=== PATIENT | male | born 1945 | race Caucasian/White ===

== ENCOUNTER 2018-09-13 07:50 | Day surgery (SDC) | payer MEDICARE, OTHER ==
[~2018-09-13 07:50] MED LIST: Lactated Ringers 1,000 ML IV SCH; Lidocaine 1%/Sod Bicarbonate in NS 8.4% 1 ML Syringe IDERM PRN; Propofol 200 MG/20 ML SDV ONE; Sodium Chloride 0.9% 10 ML Syringe FLUSH PRN; fentaNYL 100 MCG/2 ML SDV ONE
--- NOTE | 2018-09-13 08:44 | PCM.PREANE ---
Preanesthetic Assessment - Procedure Proposed Procedure: egd colonoscopy - Anesthesia/Transfusion/Family Hx Anesthesia History: Prior Anesthesia Without Reaction Family History of Anesthesia Reaction: No Transfusion History: Unknown - Review of Systems General: Weakness (since apr), Chills Pulmonary: Shortness of Breath Cardiovascular: Lightheadedness Gastrointestinal: Abdominal Pain Neurological: Dizziness Other: Reports: None, Depression - Physical Assessment NPO Status Date: 09/12/18 NPO Status Time: 22:00 O2 Sat by Pulse Oximetry: 99 Respiratory Rate: 16 Vital Signs: Last Vital Signs Temp 98.2 F 09/13/18 08:10 Pulse 70 09/13/18 08:10 Resp 16 09/13/18 08:10 BP 119/66 09/13/18 08:10 Pulse Ox 99 09/13/18 08:10 Height: 5 ft 8 in Weight: 60.781 kg ASA Class: 3 Mental Status: Other (sometimes confused) Airway Class: Mallampati = 1 Dentition: Reports: Broken Tooth/Teeth, Missing Tooth/Teeth, Caries Thyro-Mental Finger Breadths: 3 Mouth Opening Finger Breadths: 3 ROM/Head Extension: Limited/Partial Lungs: Clear to Auscultation, Normal Respiratory Effort, Decreased Breath Sounds Cardiovascular: Regular Rate, Regular Rhythm - Allergies Allergies/Adverse Reactions: Allergies Allergy/AdvReac Type Severity Reaction Status Date / Time contrast Dye Allergy Dizziness Uncoded 09/12/18 13:02 powder (from gloves) Allergy Rash Uncoded 09/12/18 13:02 - Blood Blood Available: No - Acknowledgements Anesthesia Type Planned: MAC Pt an Appropriate Candidate for the Planned Anesthesia: Yes Alternatives and Risks of Anesthesia Discussed w Pt/Guardian: Yes Pt/Guardian Understands and Agrees with Anesthesia Plan: Yes PreAnesthesia Questionnaire HEENT History: Reports: Other (See Below) Other HEENT History: nasal polyp, hard of hearing, nasal polyp surgery, has glasses, hearing aids Respiratory History: Reports: COPD, Other (See Below) (uses o2 at night) Other Respiratory History: hypoxia Gastrointestinal History: Reports: GERD (depends on what he eats) Genitourinary History: Reports: Other (See Below) Other Genitourinary History: renal insufficiency, acute renal failure, chronic kidney disease, partial penectomy [employer] History: Reports: None Musculoskeletal History: Reports: Arthritis, Other (See Below) (waiting for left hip replacement) Neurological History: Reports: None Psychiatric History: Reports: None Endocrine/Metabolic History: Reports: None Hematologic History: Reports: Anemia Immunologic History: Reports: None Oncologic (Cancer) History: Reports: Squamous Cell Carcinoma, Other (See Below) (penile) Other Dermatologic History: lymphadenectomy - Past Surgical History Head Surgeries/Procedures: Reports: None Cardiovascular Surgical History: Reports: None Respiratory Surgical History: Reports: None GI Surgical History: Reports: Appendectomy Female Surgical History: Reports: None Male Surgical History: Reports: Penile Surgery, Other (See Below) (lymph nodes removed from left leg) Endocrine Surgical History: Reports: None Neurological Surgical History: Reports: None Musculoskeletal Surgical History: Reports: None Oncologic Surgical History: Reports: None Dermatological Surgical History: Reports: None - SUBSTANCE USE Smoking Status *Q: Former Smoker (quit many years ago) Tobacco Use Within Last Twelve Months: No Second Hand Smoke Exposure: No Days Per Week of Alcohol Use: 1 (social) Recreational Drug Use History: No - HOME MEDS Home Medications: Home Meds Albuterol Sulfate [Albuterol Sulfate HFA] 8.5 gm IH Q4H PRN 07/18/14 [History] Ascorbic Acid [Vitamin C] 1,000 mg PO DAILY 09/12/18 [History] Cholecalciferol (Vitamin D3) [Vitamin D3] 2,000 unit PO DAILY 09/12/18 [History] Ferrous Sulfate [Iron] 325 mg PO DAILY 09/12/18 [History] Finasteride 5 mg PO DAILY 09/12/18 [History] Iron Ag,Ps/C/Fa6/B12/Zn/SA/Sto [Niferex Tablet] 1 tab PO DAILY 09/12/18 [History ] traMADol [Ultram] 50 mg PO Q8H PRN 09/12/18 [History] - CURRENT (IN HOUSE) MEDS Current Meds: Current Medications Lactated Ringer's (Ringers, Lactated) 1,000 mls @ 125 mls/hr IV ASDIRECTED KARLA Stop: 09/13/18 23:00 Lidocaine/Sodium Bicarbonate (Buffered Lidocaine 1% In Ns 8.4%) 0.25 ml IDERM ONETIME PRN PRN Reason: Prior to IV Start Stop: 09/13/18 18:00 Sodium Chloride (Saline Flush) 10 ml FLUSH ASDIRECTED PRN PRN Reason: Keep Vein Open Stop: 09/13/18 18:00 Discontinued Medications Fentanyl (Sublimaze) Confirm Administered Dose 100 mcg .ROUTE .STK-MED ONE Stop: 09/13/18 07:16 Propofol (Diprivan 20 Ml) Confirm Administered Dose 200 mg .ROUTE .STK-MED ONE Stop: 09/13/18 07:16
[2018-09-13] MEDS ORDERED: Propofol 200 MG/20 ML SDV ONE (09:48)
[2018-09-13] MEDS ORDERED: Lactated Ringers 1,000 ML ONE (10:09)
--- NOTE | 2018-09-13 10:15 | PCM.OPNOTE ---
- General Post-Op/Procedure Note Date of Surgery/Procedure: 09/13/18 Operative Procedure(s): colonoscopy to cecum Pre Op Diagnosis: anemia Post-Op Diagnosis: Same Anesthesia Technique: MAC Primary Surgeon: Alfred Motta EBL in mLs: 0 Complications: None Condition: Good
--- NOTE | 2018-09-13 10:16 | PCM48HPAN ---
Post Anesthesia Note - EVALUATION WITHIN 48HRS OF ANESTHETIC Vital Signs in Normal Range: Yes Patient Participated in Evaluation: Yes Respiratory Function Stable: Yes Airway Patent: Yes Cardiovascular Function Stable: Yes Hydration Status Stable: Yes Pain Control Satisfactory: Yes Nausea and Vomiting Control Satisfactory: Yes Mental Status Recovered: Yes Pulse Rate: 60 SaO2: 97 Resp Rate: 18 Temperature: 36.7 C Blood Pressure: 141/65
[2018-09-13] MEDS ORDERED: Metoclopramide 10 MG/2 ML SDV IVPUSH ONE (10:45)
[2018-09-13 12:48] VITALS: BP 108/61
--- NOTE | 2018-09-14 08:01 | OR ---
DATE OF OPERATION: 09/13/2018 SURGEON: Alfred Motta MD PREOPERATIVE DIAGNOSIS: Dyspepsia, heartburn, weight loss, and anemia. POSTOPERATIVE DIAGNOSIS: Dyspepsia, heartburn, weight loss, and anemia. OPERATION PERFORMED: Esophagogastroduodenoscopy with biopsy. FINDINGS: Some deformity of the pyloric channel, but without any ulcerations. The gastric mucosa was flat and suggested chronic gastritis. 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 The second portion of the duodenum, duodenal bulb, and balance of the esophagus did not show any acute disease. ANESTHESIA: Done under IV sedation. DESCRIPTION OF PROCEDURE: The patient was taken to the endoscopy room, placed in the supine position, connected to monitoring equipment, given IV sedation. He was placed in left lateral position. Bite block was inserted. A video Olympus gastroscope was placed in the posterior oropharynx under direct vision, threaded past the cricopharyngeus, down the esophagus, into the stomach. The stomach was insufflated, and the scope passed through the pylorus and second portion of duodenum and slowly withdrawn showing only a little deformity of the duodenal bulb. The stomach was large, but no acute process other than chronic gastritis was seen. Biopsy of the antrum was performed. J-maneuver demonstrated fundus, cardia, and body of the stomach and incompetent hiatus. Scope withdrawn to the GE junction located at 40 cm, showed some exuberant tissue just below the GE junction. This was biopsied. There was some telangectasia around the GE junction suggestive of chronic esophagitis. The rest of the esophagus was viewed. Scope withdrawn and unremarkable. The patient tolerated the procedure and specimen sent to pathology in a labeled container. IV sedation will be continued for colonoscopy. ESTIMATED BLOOD LOSS: MMODAL /[id number]
--- NOTE | 2018-09-14 08:01 | OR ---
DATE OF OPERATION: 09/13/2018 SURGEON: Alfred Motta MD PREOPERATIVE DIAGNOSIS: Anemia. POSTOPERATIVE DIAGNOSIS: Anemia. OPERATION PERFORMED: Colonoscopy to cecum. FINDINGS: Normal study outside of internal hemorrhoids. Prep was [place] grade B. There were no angiodysplasias, neoplasias, large tumor masses, or ulcerations noted. ANESTHESIA: Procedure done under IV sedation. DESCRIPTION OF PROCEDURE: The patient having been taken to the endoscopy room, placed in a supine position, connected to monitoring equipment, and given IV sedation for upper GI endoscopy. The IV sedation was continued for colonoscopy and placed in the left lateral position. Perianal area was inspected and was normal. Rectal exam showed good sphincter tone. A video Olympus colonoscope was then introduced into the rectum and threaded up without problem to the cecum, where the appendicular orifice and ileocecal valve were noted. Prep was good. [place] Cleansing Score grade B. Pockets of fluid were noted and aspirated. The scope was slowly withdrawn showing the cecum, ascending colon, transverse colon, descending colon, sigmoid colon, and rectum. Retroflexed view was done. The above noted was found. The patient tolerated the procedure and sent to recovery room in a stable condition. ESTIMATED BLOOD LOSS: MMODAL /[id number]
== END 2018-09-13 12:30 | disposition home or self-care (01) ==
LOC: JD.SDS 07:50
PROVIDERS: ATTEND Surgery
DX: D64.9 Anemia, unspecified (principal); K64.8 Other hemorrhoids; K29.50 Unspecified chronic gastritis without bleeding; K22.0 Achalasia of cardia; R63.4 Abnormal weight loss; I12.9 Hypertensive chronic kidney disease with stage 1 through stage 4 chronic kidney disease, or unspecified chronic kidney disease; N18.3 Chronic kidney disease, stage 3 (moderate); J44.9 Chronic obstructive pulmonary disease, unspecified; N17.9 Acute kidney failure, unspecified; Z87.891 Personal history of nicotine dependence; Z79.899 Other long term (current) drug therapy; Z88.8 Allergy status to other drugs, medicaments and biological substances; Z91.041 Radiographic dye allergy status
CPT/HCPCS: 43239; 45380; J2704; J2765; J3010; J7120; 00813

== ENCOUNTER 2021-10-22 09:17 | Emergency (ER) | payer MEDICARE, OTHER ==
[2021-10-22 10:04] VITALS: BP 115/64; PULSE 67
[2021-10-22] MEDS ORDERED: Ondansetron 4 MG/2 ML SDV IVPUSH ONE (12:57)
[2021-10-22] MEDS ORDERED: HYDROmorphone 0.5 MG/0.5 ML Syringe IVPUSH ONE (12:58)
[2021-10-22] MEDS ORDERED: Dextrose 5%-0.9% NaCl 1,000 ML IV SCH (13:00)
[2021-10-22 13:10] LABS: CORONAVIRUS COVID-19 NAA NEGATIVE (NEGATIVE)
== END 2021-10-22 14:14 ==
LOC: JD.ED 09:17
DX: S32.472A Displaced fracture of medial wall of left acetabulum, initial encounter for closed fracture (principal); S40.012A Contusion of left shoulder, initial encounter; G30.0 Alzheimer's disease with early onset; F02.80 Dementia in other diseases classified elsewhere, unspecified severity, without behavioral disturbance, psychotic disturbance, mood disturbance, and anxiety; J44.9 Chronic obstructive pulmonary disease, unspecified; I12.9 Hypertensive chronic kidney disease with stage 1 through stage 4 chronic kidney disease, or unspecified chronic kidney disease; N18.9 Chronic kidney disease, unspecified; Z20.822 Contact with and (suspected) exposure to COVID-19; Z88.8 Allergy status to other drugs, medicaments and biological substances; Z91.041 Radiographic dye allergy status; W18.30XA Fall on same level, unspecified, initial encounter
CPT/HCPCS: 0240U; 36415; 71045; 72170; 73030; 73552; 80053; 81001; 85025; 85610; 85652; 85730; 86140; 93005; 96374; 96375; 99284; J1170; J2405; J7042

== ENCOUNTER 2022-11-30 17:00 | Emergency (ER) | payer MEDICARE, OTHER ==
[2022-11-30] MEDS ORDERED: Sodium Chloride 0.9% 10 ML Syringe FLUSH PRN (17:55)
[2022-11-30] MEDS ORDERED: Albuterol 0.083% 2.5 MG/3 ML Neb Soln NEB ONE (18:11)
[2022-11-30] MEDS ORDERED: Acetaminophen 325 MG Tab PO ONE (18:27)
[2022-11-30 18:55] LABS: BASOPHILS ABSOLUTE AUTO 0.01 K/mm3 (0.01-0.08); BASOPHILS PERCENT AUTO 0.1 % (0.1-1.2); EOSINOPHILS ABSOLUTE AUTO 0.04 K/mm3 (0.04-0.54); EOSINOPHILS PERCENT AUTO 0.5 (0.8-7.0); HEMATOCRIT 41.4 % (40.1-51.0); HEMOGLOBIN 14.1 gm/dl (13.7-17.5); IMMATURE GRAN ABSOLUTE AUTO 0.03 K/mm3 (0.00-0.10); IMMATURE GRAN PERCENT AUTO 0.4 % (<=1.0); LYMPHOCYTES ABSOLUTE AUTO 0.58 K/mm3 (1.32-3.57); LYMPHOCYTES PERCENT AUTO 7.2 % (21.8-53.1); MEAN CORPUSCULAR HEMOGLOBIN 31.3 pg (25.7-32.2); MEAN CORPUSCULAR HGB CONC 34.1 g/dl (32.2-35.5); MEAN CORPUSCULAR VOLUME 91.8 fl (79.0-92.2); MEAN PLATELET VOLUME 9.9 fl (9.4-12.3); MONOCYTES ABSOLUTE AUTO 0.64 K/mm3 (0.30-0.82); MONOCYTES PERCENT AUTO 7.9 % (5.3-12.2); NEUTROPHILS PERCENT AUTO 83.9 % (34.0-67.9); PLATELET COUNT,PLT 173 K/mm3 (163-337); RED BLOOD CELL COUNT 4.51 M/mm3 (4.63-6.08)
[2022-11-30 19:11] LABS: LACTIC ACID 1.4 mmol/L (0.4-2.0)
[2022-11-30 19:17] LABS: A/G RATIO 0.7 (1-2); ANION GAP 16.6 (5-15); BILIRUBIN TOTAL 0.6 mg/dL (0.2-1.0); BUN/CREATININE RATIO 21.3 (14-18); CALCIUM 8.6 mg/dL (8.5-10.1); CREATININE 2.4 mg/dL (0.7-1.3); EST CRCL DRUG DOSING (CG) 25.77 mL/min; MAGNESIUM 1.5 mg/dL (1.8-2.4); POTASSIUM,K 3.6 mEq/L (3.5-5.1); PROTEIN TOTAL,TP 7.5 g/dl (6.4-8.2)
[2022-11-30 20:04] LABS: APPEARANCE,URINE CLOUDY (Clear); BILIRUBIN,URINE NEGATIVE (Negative); COLOR,URINE DARK YELLOW (Yellow); GLUCOSE,URINE NEGATIVE (Negative); KETONES,URINE TRACE (Negative); LEUKOCYTE ESTERASE,URINE 3+ (Negative); NITRITE,URINE NEGATIVE (Negative); OCCULT BLOOD,URINE 2+ (Negative); PH,URINE 6.5 (5.0-8.0); PROTEIN,URINE 3+ (Negative); UROBILINOGEN,URINE 0.2 (0.2-1.0)
[2022-11-30 20:13] LABS: AMORPHOUS SEDIMENT,URINE MODERATE /hpf (NOT SEEN); BACTERIA,URINE MANY /hpf (FEW); HYALINE CASTS,URINE 0-5 /lpf (0-5); MUCUS,URINE FEW /hpf (FEW); RBC,URINE 20-30 /hpf (0-5); WBC,URINE TOO NUMEROUS TO CNT /hpf (0-5)
[2022-11-30] MEDS ORDERED: cefTRIAXone 2 GM in Sodium Chloride 0.9% 100 ML IV ONE (20:31)
[2022-11-30 23:07] VITALS: BP 130/70; PULSE 92
[2022-12-02 21:06] LABS: SLIDE REVIEW ABNORMAL SMEAR
== END 2022-11-30 22:22 | disposition home or self-care (01) ==
LOC: JD.ED 17:00
DX: N30.01 Acute cystitis with hematuria (principal); L24.9 Irritant contact dermatitis, unspecified cause; R79.1 Abnormal coagulation profile; J44.9 Chronic obstructive pulmonary disease, unspecified; I12.9 Hypertensive chronic kidney disease with stage 1 through stage 4 chronic kidney disease, or unspecified chronic kidney disease; N18.9 Chronic kidney disease, unspecified; M19.90 Unspecified osteoarthritis, unspecified site; Z91.048 Other nonmedicinal substance allergy status; Z91.041 Radiographic dye allergy status; Z79.899 Other long term (current) drug therapy; Z79.82 Long term (current) use of aspirin
CPT/HCPCS: 36415; 70450; 71045; 73030; 80053; 81001; 83605; 83735; 83880; 84484; 85025; 86140; 87040; 87086; 87154; 93005; 94640; 96365; 99285; A9270; J0696; J3490; 87077; 87088; 87186; 93010; 99283; J7620-GY

== ENCOUNTER 2022-12-05 14:39 | Inpatient (IN) | payer MEDICARE, OTHER ==
[~2022-12-05 14:39] MED LIST changes: -Lactated Ringers 1,000 ML IV SCH; -Lidocaine 1%/Sod Bicarbonate in NS 8.4% 1 ML Syringe IDERM PRN; +Piperacillin/Tazobactam 4.5 GM in Sodium Chloride 0.9% 100 ML IV ONE; -Propofol 200 MG/20 ML SDV ONE; -Sodium Chloride 0.9% 10 ML Syringe FLUSH PRN; -fentaNYL 100 MCG/2 ML SDV ONE
[2022-12-05] MEDS ORDERED: Sodium Chloride 0.9% 1,000 ML IV STA (15:57)
[2022-12-05] MEDS ORDERED: Sodium Chloride 0.9% 10 ML Syringe FLUSH PRN (15:57)
[2022-12-05 16:44] LABS: BASOPHILS ABSOLUTE AUTO 0.02 K/mm3 (0.01-0.08); BASOPHILS PERCENT AUTO 0.1 % (0.1-1.2); EOSINOPHILS ABSOLUTE AUTO 0.26 K/mm3 (0.04-0.54); EOSINOPHILS PERCENT AUTO 1.6 (0.8-7.0); HEMATOCRIT 36.9 % (40.1-51.0); HEMOGLOBIN 12.9 gm/dl (13.7-17.5); IMMATURE GRAN ABSOLUTE AUTO 0.24 K/mm3 (0.00-0.10); IMMATURE GRAN PERCENT AUTO 1.5 % (<=1.0); LYMPHOCYTES ABSOLUTE AUTO 0.85 K/mm3 (1.32-3.57); LYMPHOCYTES PERCENT AUTO 5.2 % (21.8-53.1); MEAN CORPUSCULAR HEMOGLOBIN 31.2 pg (25.7-32.2); MEAN CORPUSCULAR VOLUME 89.3 fl (79.0-92.2); MEAN PLATELET VOLUME 9.4 fl (9.4-12.3); MONOCYTES ABSOLUTE AUTO 0.98 K/mm3 (0.30-0.82); NEUTROPHILS ABSOLUTE AUTO 13.97 K/mm3 (1.78-5.38); NEUTROPHILS PERCENT AUTO 85.6 % (34.0-67.9); PLATELET COUNT,PLT 290 K/mm3 (163-337); RED BLOOD CELL COUNT 4.13 M/mm3 (4.63-6.08); WHITE BLOOD CELL COUNT,WBC 16.32 K/mm3 (4.23-9.07)
[2022-12-05 17:17] LABS: A/G RATIO 0.4 (1-2); ALANINE AMINOTRANSFERASE,ALT 41 U/L (16-63); ALKALINE PHOSPHATASE 97 U/L (46-116); ANION GAP 14.8 (5-15); ASPARTATE AMNIOTRANSFERASE,AST 39 U/L (15-37); BILIRUBIN TOTAL 0.5 mg/dL (0.2-1.0); BLOOD UREA NITROGEN,BUN 42 mg/dL (7-18); BUN/CREATININE RATIO 24.7 (14-18); CALCIUM 8.7 mg/dL (8.5-10.1); CARBON DIOXIDE,CO2 21 mEq/L (21-32); CHLORIDE,CL 96 mEq/L (98-107); CREATININE 1.7 mg/dL (0.7-1.3); ESTIMATED GFR 41 mL/min (>60); GLUCOSE RANDOM 123 mg/dL (70-99); POTASSIUM,K 2.8 mEq/L (3.5-5.1); PROTEIN TOTAL,TP 6.8 g/dl (6.4-8.2); SODIUM,NA 129 mEq/L (136-145)
[2022-12-05 17:25] LABS: SLIDE REVIEW ABNORMAL SMEAR
[2022-12-05] MEDS ORDERED: cefTRIAXone 1 GM in Sodium Chloride 0.9% 100 ML IV ONE (17:54)
[2022-12-05] MEDS ORDERED: Piperacillin/Tazobactam 4.5 GM in Sodium Chloride 0.9% 100 ML IV SCH (17:55)
[2022-12-05] MEDS ORDERED: HYDROmorphone 0.5 MG/0.5 ML Syringe IVPUSH ONE (18:01)
[2022-12-05 19:18] LABS: APPEARANCE,URINE CLEAR (Clear); BILIRUBIN,URINE NEGATIVE (Negative); COLOR,URINE YELLOW (Yellow); GLUCOSE,URINE NEGATIVE (Negative); KETONES,URINE NEGATIVE (Negative); LEUKOCYTE ESTERASE,URINE NEGATIVE (Negative); NITRITE,URINE NEGATIVE (Negative); OCCULT BLOOD,URINE 1+ (Negative); PH,URINE 5.5 (5.0-8.0); PROTEIN,URINE 2+ (Negative); UROBILINOGEN,URINE 0.2 (0.2-1.0)
[2022-12-05] MEDS ORDERED: Sodium Chloride 0.9% 1,000 ML IV SCH (19:45)
[2022-12-05] MEDS: Potassium Chloride 10 MEQ in Premix Bag 1 BAG IV SCH ×4 (19:47→23:52)
[2022-12-05] MEDS ORDERED: Ondansetron 4 MG/2 ML SDV IV PRN (19:48)
[2022-12-05] MEDS ORDERED: Polyethylene Glycol 3350 Powder 17 GM Packet PO PRN (19:48)
[2022-12-05] MEDS ORDERED: Ondansetron 4 MG Tab.DIS PO PRN (19:48)
[2022-12-05] MEDS ORDERED: Docusate Sodium 100 MG Cap PO PRN (19:48)
[2022-12-05] MEDS ORDERED: oxyCODONE 5 MG Tab PO PRN (19:48)
[2022-12-05] MEDS ORDERED: Acetaminophen 325 MG Tab PO PRN (19:48)
[2022-12-05] MEDS ORDERED: Acetaminophen 650 MG Supp RECTAL PRN (19:48)
[2022-12-05] MEDS ORDERED: Albuterol/Ipratropium 3.0-0.5 MG/3 ML Neb Soln NEB PRN (19:48)
[2022-12-05 19:50] LABS: BACTERIA,URINE FEW /hpf (FEW); COARSE GRANULAR CASTS,URINE 0-5 /hpf (0-5); MUCUS,URINE RARE /hpf (FEW); RBC,URINE 0-5 /hpf (0-5); RENAL EPITHELIAL CELLS,URINE 0-5 /hpf (0-5); SQUAMOUS EPITHELIAL CELLS,UR 0-5 /hpf (0-5); WBC CLUMPS,URINE RARE /hpf (NOT SEEN); WBC,URINE 0-5 /hpf (0-5)
[2022-12-05] MEDS ORDERED: VANCOmycin 2 GM/400 ML 2 GM in Premix Bag 1 BAG IV ONE (20:47)
[2022-12-05] MEDS ORDERED: VANCOmycin 1.75 GM/350 ML 350 ML IV ONE (21:00)
[2022-12-05 23:04] LABS: CORONAVIRUS COVID-19 NAA NEGATIVE (NEGATIVE); INFLUENZA A NAA NEGATIVE (NEGATIVE); RESPIRATORY SYNCYTIAL VIR NAA NEGATIVE (NEGATIVE)
[2022-12-05] MEDS ORDERED: Piperacillin/Tazobactam 4.5 GM in Sodium Chloride 0.9% 100 ML IV ONE (23:30)
[2022-12-06] MEDS ORDERED: Piperacillin/Tazobactam 4.5 GM in Sodium Chloride 0.9% 100 ML IV ONE ×2
[2022-12-06] MEDS: Sodium Chloride 0.9% 1,000 ML IV SCH ×3 (04:11→19:50)
[2022-12-06 06:28] LABS: BASOPHILS ABSOLUTE AUTO 0.02 K/mm3 (0.01-0.08); BASOPHILS PERCENT AUTO 0.1 % (0.1-1.2); EOSINOPHILS ABSOLUTE AUTO 0.21 K/mm3 (0.04-0.54); EOSINOPHILS PERCENT AUTO 1.3 (0.8-7.0); HEMATOCRIT 33.3 % (40.1-51.0); HEMOGLOBIN 11.5 gm/dl (13.7-17.5); IMMATURE GRAN ABSOLUTE AUTO 0.22 K/mm3 (0.00-0.10); IMMATURE GRAN PERCENT AUTO 1.3 % (<=1.0); LYMPHOCYTES PERCENT AUTO 4.3 % (21.8-53.1); MEAN CORPUSCULAR HEMOGLOBIN 31.3 pg (25.7-32.2); MEAN CORPUSCULAR HGB CONC 34.5 g/dl (32.2-35.5); MEAN CORPUSCULAR VOLUME 90.7 fl (79.0-92.2); MEAN PLATELET VOLUME 9.5 fl (9.4-12.3); MONOCYTES ABSOLUTE AUTO 0.91 K/mm3 (0.30-0.82); MONOCYTES PERCENT AUTO 5.6 % (5.3-12.2); NEUTROPHILS PERCENT AUTO 87.4 % (34.0-67.9); PLATELET COUNT,PLT 273 K/mm3 (163-337); RED BLOOD CELL COUNT 3.67 M/mm3 (4.63-6.08); WHITE BLOOD CELL COUNT,WBC 16.36 K/mm3 (4.23-9.07)
[2022-12-06 06:45] LABS: ANION GAP 16.2 (5-15); BUN/CREATININE RATIO 25.3 (14-18); CREATININE 1.5 mg/dL (0.7-1.3); EST CRCL DRUG DOSING (CG) 41.23 mL/min; MAGNESIUM 1.4 mg/dL (1.8-2.4); POTASSIUM,K 3.2 mEq/L (3.5-5.1)
[2022-12-06] MEDS ORDERED: Piperacillin/Tazobactam 4.5 GM in Sodium Chloride 0.9% 100 ML IV SCH (08:00)
[2022-12-06] MEDS: Enoxaparin 40 MG/0.4 ML Syringe SUBCUT SCH (09:23)
[2022-12-06 09:27] LABS: SLIDE REVIEW ABNORMAL SMEAR
[2022-12-06] MEDS ORDERED: Carbamide Peroxide 6.5% Otic Soln 15 ML Bottle EARBOTH PRN (14:28)
[2022-12-06] MEDS ORDERED: Triamcinolone Acetonide 0.5% Oint 15 GM Tube TOP PRN (14:28)
[2022-12-06] MEDS ORDERED: Albuterol 6.7 GM Inhaler INH PRN (14:28)
[2022-12-06] MEDS ORDERED: cefTRIAXone 1 GM in Sodium Chloride 0.9% 100 ML IV SCH (20:00)
[2022-12-06] MEDS: Primidone 50 MG Tab PO SCH (20:00)
[2022-12-06] MEDS: Sodium Bicarbonate 650 MG Tab PO SCH (20:02)
[2022-12-07] MEDS: Sodium Chloride 0.9% 1,000 ML IV SCH ×3 (04:07→21:11)
[2022-12-07 06:34] LABS: BASOPHILS ABSOLUTE AUTO 0.02 K/mm3 (0.01-0.08); BASOPHILS PERCENT AUTO 0.1 % (0.1-1.2); EOSINOPHILS ABSOLUTE AUTO 0.24 K/mm3 (0.04-0.54); EOSINOPHILS PERCENT AUTO 1.3 (0.8-7.0); HEMATOCRIT 32.5 % (40.1-51.0); HEMOGLOBIN 11.1 gm/dl (13.7-17.5); IMMATURE GRAN ABSOLUTE AUTO 0.22 K/mm3 (0.00-0.10); IMMATURE GRAN PERCENT AUTO 1.2 % (<=1.0); LYMPHOCYTES ABSOLUTE AUTO 0.72 K/mm3 (1.32-3.57); MEAN CORPUSCULAR HEMOGLOBIN 30.7 pg (25.7-32.2); MEAN CORPUSCULAR HGB CONC 34.2 g/dl (32.2-35.5); MEAN PLATELET VOLUME 9.4 fl (9.4-12.3); MONOCYTES ABSOLUTE AUTO 0.91 K/mm3 (0.30-0.82); NEUTROPHILS ABSOLUTE AUTO 15.99 K/mm3 (1.78-5.38); NEUTROPHILS PERCENT AUTO 88.4 % (34.0-67.9); PLATELET COUNT,PLT 298 K/mm3 (163-337); RED BLOOD CELL COUNT 3.61 M/mm3 (4.63-6.08)
[2022-12-07 06:46] LABS: ANION GAP 15.9 (5-15); BUN/CREATININE RATIO 22.9 (14-18); CALCIUM 7.5 mg/dL (8.5-10.1); CREATININE 1.4 mg/dL (0.7-1.3); EST CRCL DRUG DOSING (CG) 44.18 mL/min; POTASSIUM,K 2.9 mEq/L (3.5-5.1)
[2022-12-07] MEDS: Ascorbic Acid 500 MG Tab PO SCH (09:16)
[2022-12-07] MEDS: Sertraline 50 MG Tab PO SCH (09:17)
[2022-12-07] MEDS: Sodium Bicarbonate 650 MG Tab PO SCH ×2 (09:17→21:11)
[2022-12-07] MEDS: Primidone 50 MG Tab PO SCH ×2 (09:17→21:11)
[2022-12-07] MEDS: Multivitamin Tab PO SCH (09:17)
[2022-12-07] MEDS: Saccharomyces Boulardii (Probiotic) 250 MG Cap PO SCH (09:17)
[2022-12-07] MEDS: Finasteride 5 MG Tab PO SCH (09:17)
[2022-12-07] MEDS: Aspirin 81 MG Tab.EC PO SCH (09:17)
[2022-12-07] MEDS: Enoxaparin 40 MG/0.4 ML Syringe SUBCUT SCH (09:18)
[2022-12-07] MEDS: Cholecalciferol (Vitamin D3) 5,000 UNIT Cap PO SCH (09:18)
[2022-12-07] MEDS: Iron Polysaccharides Complex 150 MG Cap PO SCH (09:18)
[2022-12-07] MEDS: Tiotropium BR/Olodaterol HCL 4 GM Inhalation Spray 2.5mcg/1 dose; 10 doses INH SCH (10:40)
[2022-12-07] MEDS: Potassium Chloride 10 MEQ in Premix Bag 1 BAG IV SCH ×6 (11:19→17:22)
[2022-12-07] MEDS ORDERED: Piperacillin/Tazobactam 4.5 GM in Sodium Chloride 0.9% 100 ML IV ONE (14:00)
[2022-12-07] MEDS ORDERED: Magnesium Sulfate/Water 4 GM in Premix Bag 1 BAG IV ONE (17:00)
[2022-12-07] MEDS: Tamsulosin 0.4 MG Cap.ER PO SCH (18:22)
[2022-12-07] MEDS: Piperacillin/Tazobactam 4.5 GM in Sodium Chloride 0.9% 100 ML IV SCH (22:41)
[2022-12-08] MEDS: Piperacillin/Tazobactam 4.5 GM in Sodium Chloride 0.9% 100 ML IV SCH ×3 (05:59→21:25)
[2022-12-08 06:42] LABS: BASOPHILS ABSOLUTE AUTO 0.01 K/mm3 (0.01-0.08); BASOPHILS PERCENT AUTO 0.1 % (0.1-1.2); EOSINOPHILS ABSOLUTE AUTO 0.37 K/mm3 (0.04-0.54); EOSINOPHILS PERCENT AUTO 2.3 (0.8-7.0); HEMATOCRIT 30.3 % (40.1-51.0); HEMOGLOBIN 10.5 gm/dl (13.7-17.5); IMMATURE GRAN ABSOLUTE AUTO 0.12 K/mm3 (0.00-0.10); IMMATURE GRAN PERCENT AUTO 0.8 % (<=1.0); LYMPHOCYTES ABSOLUTE AUTO 0.67 K/mm3 (1.32-3.57); LYMPHOCYTES PERCENT AUTO 4.2 % (21.8-53.1); MEAN CORPUSCULAR HEMOGLOBIN 31.5 pg (25.7-32.2); MEAN CORPUSCULAR HGB CONC 34.7 g/dl (32.2-35.5); MEAN PLATELET VOLUME 9.2 fl (9.4-12.3); MONOCYTES ABSOLUTE AUTO 0.79 K/mm3 (0.30-0.82); MONOCYTES PERCENT AUTO 4.9 % (5.3-12.2); NEUTROPHILS ABSOLUTE AUTO 14.03 K/mm3 (1.78-5.38); NEUTROPHILS PERCENT AUTO 87.7 % (34.0-67.9); PLATELET COUNT,PLT 287 K/mm3 (163-337); RED BLOOD CELL COUNT 3.33 M/mm3 (4.63-6.08); WHITE BLOOD CELL COUNT,WBC 15.99 K/mm3 (4.23-9.07)
[2022-12-08 07:04] LABS: ANION GAP 15.1 (5-15); CALCIUM 7.1 mg/dL (8.5-10.1); CREATININE 1.5 mg/dL (0.7-1.3); EST CRCL DRUG DOSING (CG) 41.23 mL/min; POTASSIUM,K 3.1 mEq/L (3.5-5.1); VANCOMYCIN RANDOM 17.2 ug/mL
[2022-12-08] MEDS: Ascorbic Acid 500 MG Tab PO SCH (08:38)
[2022-12-08] MEDS: Primidone 50 MG Tab PO SCH ×2 (08:38→20:09)
[2022-12-08] MEDS: Saccharomyces Boulardii (Probiotic) 250 MG Cap PO SCH (08:38)
[2022-12-08] MEDS: Sertraline 50 MG Tab PO SCH (08:39)
[2022-12-08] MEDS: Finasteride 5 MG Tab PO SCH (08:39)
[2022-12-08] MEDS: Aspirin 81 MG Tab.EC PO SCH (08:39)
[2022-12-08] MEDS: Iron Polysaccharides Complex 150 MG Cap PO SCH (08:39)
[2022-12-08] MEDS: Enoxaparin 40 MG/0.4 ML Syringe SUBCUT SCH (08:39)
[2022-12-08] MEDS: Multivitamin Tab PO SCH (08:39)
[2022-12-08] MEDS: Cholecalciferol (Vitamin D3) 5,000 UNIT Cap PO SCH (08:39)
[2022-12-08] MEDS: Sodium Bicarbonate 650 MG Tab PO SCH ×2 (08:40→20:10)
[2022-12-08] MEDS: Tiotropium BR/Olodaterol HCL 4 GM Inhalation Spray 2.5mcg/1 dose; 10 doses INH SCH (09:00)
[2022-12-08] MEDS: Potassium Chloride 10 MEQ in Premix Bag 1 BAG IV SCH ×6 (15:56→23:29)
[2022-12-08] MEDS: Tamsulosin 0.4 MG Cap.ER PO SCH (18:27)
[2022-12-09] MEDS: Piperacillin/Tazobactam 4.5 GM in Sodium Chloride 0.9% 100 ML IV SCH ×3 (05:30→21:05)
[2022-12-09 06:24] LABS: BASOPHILS ABSOLUTE AUTO 0.01 K/mm3 (0.01-0.08); BASOPHILS PERCENT AUTO 0.1 % (0.1-1.2); EOSINOPHILS ABSOLUTE AUTO 0.44 K/mm3 (0.04-0.54); EOSINOPHILS PERCENT AUTO 2.7 (0.8-7.0); HEMATOCRIT 29.8 % (40.1-51.0); HEMOGLOBIN 10.3 gm/dl (13.7-17.5); IMMATURE GRAN ABSOLUTE AUTO 0.12 K/mm3 (0.00-0.10); IMMATURE GRAN PERCENT AUTO 0.7 % (<=1.0); LYMPHOCYTES ABSOLUTE AUTO 0.46 K/mm3 (1.32-3.57); LYMPHOCYTES PERCENT AUTO 2.8 % (21.8-53.1); MEAN CORPUSCULAR HEMOGLOBIN 31.2 pg (25.7-32.2); MEAN CORPUSCULAR HGB CONC 34.6 g/dl (32.2-35.5); MEAN CORPUSCULAR VOLUME 90.3 fl (79.0-92.2); MEAN PLATELET VOLUME 9.2 fl (9.4-12.3); MONOCYTES ABSOLUTE AUTO 0.74 K/mm3 (0.30-0.82); MONOCYTES PERCENT AUTO 4.6 % (5.3-12.2); NEUTROPHILS ABSOLUTE AUTO 14.48 K/mm3 (1.78-5.38); NEUTROPHILS PERCENT AUTO 89.1 % (34.0-67.9); PLATELET COUNT,PLT 294 K/mm3 (163-337); WHITE BLOOD CELL COUNT,WBC 16.25 K/mm3 (4.23-9.07)
[2022-12-09 06:37] LABS: ANION GAP 15.2 (5-15); CALCIUM 7.4 mg/dL (8.5-10.1); CREATININE 1.4 mg/dL (0.7-1.3); EST CRCL DRUG DOSING (CG) 44.18 mL/min; POTASSIUM,K 3.2 mEq/L (3.5-5.1)
[2022-12-09] MEDS: Tiotropium BR/Olodaterol HCL 4 GM Inhalation Spray 2.5mcg/1 dose; 10 doses INH SCH (08:12)
[2022-12-09] MEDS ORDERED: Potassium Chloride 20 MEQ Tab.ER PO SCH (09:00)
[2022-12-09] MEDS: Primidone 50 MG Tab PO SCH ×2 (09:32→20:49)
[2022-12-09] MEDS: Iron Polysaccharides Complex 150 MG Cap PO SCH (09:32)
[2022-12-09] MEDS: Cholecalciferol (Vitamin D3) 5,000 UNIT Cap PO SCH (09:32)
[2022-12-09] MEDS: Multivitamin Tab PO SCH (09:32)
[2022-12-09] MEDS: Sertraline 50 MG Tab PO SCH (09:32)
[2022-12-09] MEDS: Ascorbic Acid 500 MG Tab PO SCH (09:32)
[2022-12-09] MEDS: Sodium Bicarbonate 650 MG Tab PO SCH ×2 (09:32→20:50)
[2022-12-09] MEDS: Aspirin 81 MG Tab.EC PO SCH (09:32)
[2022-12-09] MEDS: Enoxaparin 40 MG/0.4 ML Syringe SUBCUT SCH (09:32)
[2022-12-09] MEDS: Saccharomyces Boulardii (Probiotic) 250 MG Cap PO SCH (09:32)
[2022-12-09] MEDS: Finasteride 5 MG Tab PO SCH (09:32)
[2022-12-09] MEDS ORDERED: Furosemide 20 MG/2 ML VIAL IVPUSH ONE (11:30)
[2022-12-09] MEDS: Furosemide 40 MG/4 ML VIAL IVPUSH SCH ×2 (11:36→20:48)
[2022-12-09] MEDS ORDERED: oxyCODONE 5 MG Tab PO PRN (14:13)
[2022-12-09] MEDS: Potassium Chloride 20 MEQ Tab.ER PO SCH (17:44)
[2022-12-09] MEDS: Tamsulosin 0.4 MG Cap.ER PO SCH (20:48)
[2022-12-10 05:23] LABS: BASOPHILS ABSOLUTE AUTO 0.02 K/mm3 (0.01-0.08); BASOPHILS PERCENT AUTO 0.1 % (0.1-1.2); EOSINOPHILS ABSOLUTE AUTO 0.29 K/mm3 (0.04-0.54); EOSINOPHILS PERCENT AUTO 2.1 (0.8-7.0); HEMOGLOBIN 11.2 gm/dl (13.7-17.5); IMMATURE GRAN ABSOLUTE AUTO 0.09 K/mm3 (0.00-0.10); IMMATURE GRAN PERCENT AUTO 0.6 % (<=1.0); LYMPHOCYTES ABSOLUTE AUTO 0.81 K/mm3 (1.32-3.57); LYMPHOCYTES PERCENT AUTO 5.7 % (21.8-53.1); MEAN CORPUSCULAR HEMOGLOBIN 31.3 pg (25.7-32.2); MEAN CORPUSCULAR VOLUME 89.4 fl (79.0-92.2); MONOCYTES ABSOLUTE AUTO 0.83 K/mm3 (0.30-0.82); MONOCYTES PERCENT AUTO 5.9 % (5.3-12.2); NEUTROPHILS ABSOLUTE AUTO 12.06 K/mm3 (1.78-5.38); NEUTROPHILS PERCENT AUTO 85.6 % (34.0-67.9); PLATELET COUNT,PLT 346 K/mm3 (163-337); RED BLOOD CELL COUNT 3.58 M/mm3 (4.63-6.08)
[2022-12-10] MEDS: Piperacillin/Tazobactam 4.5 GM in Sodium Chloride 0.9% 100 ML IV SCH (05:43)
[2022-12-10 05:49] LABS: ANION GAP 16.1 (5-15); BUN/CREATININE RATIO 17.5 (14-18); CALCIUM 7.9 mg/dL (8.5-10.1); CREATININE 1.6 mg/dL (0.7-1.3); EST CRCL DRUG DOSING (CG) 38.65 mL/min; POTASSIUM,K 3.1 mEq/L (3.5-5.1)
[2022-12-10] MEDS: Tiotropium BR/Olodaterol HCL 4 GM Inhalation Spray 2.5mcg/1 dose; 10 doses INH SCH (09:39)
[2022-12-10] MEDS ORDERED: Spironolactone 25 MG Tab PO SCH (10:30)
[2022-12-10] MEDS: Furosemide 40 MG/4 ML VIAL IVPUSH SCH (10:36)
[2022-12-10] MEDS: Primidone 50 MG Tab PO SCH (10:36)
[2022-12-10] MEDS: Enoxaparin 40 MG/0.4 ML Syringe SUBCUT SCH (10:36)
[2022-12-10] MEDS: Multivitamin Tab PO SCH (10:37)
[2022-12-10] MEDS: Iron Polysaccharides Complex 150 MG Cap PO SCH (10:37)
[2022-12-10] MEDS: Finasteride 5 MG Tab PO SCH (10:37)
[2022-12-10] MEDS: Saccharomyces Boulardii (Probiotic) 250 MG Cap PO SCH (10:37)
[2022-12-10] MEDS: Ascorbic Acid 500 MG Tab PO SCH (10:37)
[2022-12-10] MEDS: Cholecalciferol (Vitamin D3) 5,000 UNIT Cap PO SCH (10:37)
[2022-12-10] MEDS: Sertraline 50 MG Tab PO SCH (10:37)
[2022-12-10] MEDS: Potassium Chloride 20 MEQ Tab.ER PO SCH (10:37)
[2022-12-10] MEDS: Aspirin 81 MG Tab.EC PO SCH (10:38)
[2022-12-10] MEDS: Sodium Bicarbonate 650 MG Tab PO SCH (10:38)
[2022-12-10 13:13] VITALS: BP 117/61; PULSE 86
== END 2022-12-10 13:00 | DRG 698 ==
LOC: JD.ED 14:39 → JD.MS 19:40
PROVIDERS: ADMIT Hospitalist; ATTEND Hospitalist
DX: T83.511A Infection and inflammatory reaction due to indwelling urethral catheter, initial encounter (principal); A41.9 Sepsis, unspecified organism; N17.9 Acute kidney failure, unspecified; E87.1 Hypo-osmolality and hyponatremia; N39.0 Urinary tract infection, site not specified; Z91.048 Other nonmedicinal substance allergy status; K21.9 Gastro-esophageal reflux disease without esophagitis; N18.9 Chronic kidney disease, unspecified; M19.90 Unspecified osteoarthritis, unspecified site; D63.1 Anemia in chronic kidney disease; I12.9 Hypertensive chronic kidney disease with stage 1 through stage 4 chronic kidney disease, or unspecified chronic kidney disease; J44.9 Chronic obstructive pulmonary disease, unspecified; F32.A Depression, unspecified; G30.9 Alzheimer's disease, unspecified; F02.80 Dementia in other diseases classified elsewhere, unspecified severity, without behavioral disturbance, psychotic disturbance, mood disturbance, and anxiety; E86.0 Dehydration; E87.6 Hypokalemia; E83.42 Hypomagnesemia; Z79.51 Long term (current) use of inhaled steroids; Z79.899 Other long term (current) drug therapy; Z79.82 Long term (current) use of aspirin; Z79.890 Hormone replacement therapy; Z91.041 Radiographic dye allergy status; Z90.49 Acquired absence of other specified parts of digestive tract
CPT/HCPCS: 0241U; 36415; 71045; 71250; 74176; 76870; 80048; 80053; 80202; 81001; 83605; 83735; 84100; 85025; 87040; 87086; 87641; 93975; 94640; 94760; 96361; 96365; 97161; 97166; 99285; A9270-GY; J0696; J1650; J1940; J2543; J3370; J3475; J3480; J3490; J7030; J7050